=== PATIENT | female | born 2000 | race Caucasian/White ===

== ENCOUNTER 2020-11-19 07:28 | Inpatient (IN) | payer OTHER ==
[~2020-11-19] VITALS: Ht 165.1 cm; Wt 90.7 kg
[2020-11-19] MEDS ORDERED: METHYLERGONOVINE 0.2 MG/ML AMP IM ONE (07:55)
[2020-11-19] MEDS ORDERED: OXYTOCIN 20 UNITS in LACTATED RINGERS 1,000 ML IV SCH (07:55)
[2020-11-19] MEDS ORDERED: MISOPROSTOL 25 MCG TAB VG SCH (08:00)
--- NOTE | 2020-11-19 08:35 | NUR ---
PATIENT HAS BEEN SCREENED AND CATEGORIZED LOW NUTRITION RISK. PATIENT WILL BE SEEN WITHIN 7 DAYS OF ADMISSION. 11/25/[address]
[2020-11-19 09:08] LABS: APPEARANCE,URINE HAZY (CLEAR); BILIRUBIN,URINE NEGATIVE (NEGATIVE); BLOOD, URINE 2+ (NEGATIVE); COLOR,URINE YELLOW (YELLOW); LEUKOCYTE ESTERASE ,URINE TRACE (NEGATIVE); UGLUCOSE NEGATIVE (NEGATIVE)
[2020-11-19 09:10] LABS: ALBUMIN 2.7 g/dL (3.4-5.0); ANION GAP 14.9 (8-16); CARBON DIOXIDE 23.8 mmol/L (21-32); CREATININE 0.5 mg/dL (0.6-1.3); POTASSIUM 3.7 mmol/L (3.5-5.1); TOTAL BILIRUBIN 0.3 mg/dL (0.0-1.0)
[2020-11-19] MEDS ORDERED: AMPICILLIN 2,000 MG in NACL 0.9% 100 ML IV SCH (09:10)
[2020-11-19 09:17] VITALS: BP 107/58
[2020-11-19 09:21] LABS: NITRITE, URINE POSITIVE (NEGATIVE); WBC,URINE 0-5 /HPF (0-5)
[2020-11-19] MEDS: LACTATED RINGERS 1,000 ML IV SCH ×2 (10:33→17:49)
[2020-11-19 11:05] LABS: BASOPHILS % (AUTO) 0.5 % (0.0-2.0); EOSINOPHILS # (AUTO) 0.1 K/uL (0-0.4); EOSINOPHILS % (AUTO) 0.8 % (0.0-4.0); HEMATOCRIT 39.9 % (36-48); HEMOGLOBIN 13.2 g/dL (12.0-16.0); LYMPHOCYTES # (AUTO) 1.7 K/uL (2.5-16.5); LYMPHOCYTES % (AUTO) 18.5 % (20.5-51.1); MEAN CORPUSCULAR HEMOGLOBIN 31 pg (27-31); MEAN CORPUSCULAR HGB CONC 33 g/dL (33-37); MEAN CORPUSCULAR VOLUME 92.5 fL (80-94); MONOCYTES # (AUTO) 0.6 K/uL (0.8-1.0); MONOCYTES % (AUTO) 6.9 % (1.7-9.3); NEUTROPHILS # (AUTO) 6.7 K/uL (1.8-7.7); NEUTROPHILS % (AUTO) 73.3 % (42.2-75.2); PLATELET COUNT (AUTO) 177 K/uL (140-450); RED BLOOD CELL COUNT(AUTO) 4.32 MIL/uL (4.20-5.40); RED CELL DISTRIBUTION WIDTH 13.4 % (11.6-13.7); WHITE BLOOD COUNT (AUTO) 9.1 K/uL (4.8-10.8)
[2020-11-19] MEDS ORDERED: AMPICILLIN 2,000 MG VIAL ONE (11:10)
[2020-11-19 11:14] LABS: RAPID PLASMA REAGIN NON-REACTIVE (Non Reactiv)
[2020-11-19] MEDS ORDERED: AMPICILLIN 1,000 MG VIAL ONE ×3 (15:22→22:57)
[2020-11-19] MEDS: AMPICILLIN 1,000 MG in NACL 0.9% 50 ML IV SCH ×3 (15:29→23:24)
[2020-11-19] MEDS ORDERED: OXYTOCIN 20 UNITS/LR PREMIX 1,000 ML IV ONE (20:46)
[2020-11-20] MEDS: LACTATED RINGERS 1,000 ML IV SCH ×3 (02:23→09:57)
[2020-11-20] MEDS: AMPICILLIN 1,000 MG in NACL 0.9% 50 ML IV SCH ×3 (03:30→15:55)
[2020-11-20] MEDS ORDERED: AMPICILLIN 1,000 MG VIAL ONE ×4 (04:03→15:31)
[2020-11-20] MEDS ORDERED: AMPICILLIN 2,000 MG VIAL ONE (07:33)
[2020-11-20 08:31] VITALS: BP 119/66
[2020-11-20] MEDS ORDERED: LIDOCAINE MPF 1% 10 MG/ML VIAL ONE (09:24)
[2020-11-20] MEDS ORDERED: fentaNYL citrate 0.05 MG/ML VIAL ONE ×2 (09:24)
[2020-11-20] MEDS ORDERED: ROPIVACAINE 0.2%/NS PREMIX 200 ML EPI ONE (09:25)
[2020-11-20] MEDS ORDERED: OXYTOCIN 20 UNITS/LR PREMIX 1,000 ML IV ONE (15:43)
[2020-11-20] MEDS ORDERED: BENZOCAINE/MENTHOL 20%-0.5% 60 GM CAN TP PRN (17:00)
[2020-11-20] MEDS ORDERED: TEMAZEPAM 15 MG CAP PO PRN (17:00)
[2020-11-20] MEDS ORDERED: oxyCODONE/APAP 5/325 MG 1 TAB TAB PO PRN (17:00)
[2020-11-20] MEDS ORDERED: METHYLERGONOVINE 0.2 MG TAB PO PRN (17:00)
[2020-11-20] MEDS ORDERED: METHYLERGONOVINE 0.2 MG/ML AMP IM PRN (17:00)
[2020-11-20] MEDS ORDERED: OXYTOCIN 10 UNITS/ML VIAL IM PRN (17:00)
[2020-11-20] MEDS ORDERED: METHYLERGONOVINE 0.2 MG/ML AMP ONE (17:05)
[2020-11-20] MEDS ORDERED: DOCUSATE SOD/SENNA 50/8.6 MG 1 TAB PO SCH (21:00)
[2020-11-20] MEDS: IBUPROFEN 800 MG TAB PO PRN (21:35)
[2020-11-21] MEDS: IBUPROFEN 800 MG TAB PO PRN (04:38)
[2020-11-21 06:17] LABS: HEMATOCRIT 34.8 % (36-48); HEMOGLOBIN 11.5 g/dL (12.0-16.0)
[2020-11-21] MEDS: oxyCODONE/APAP 5/325 MG 1 TAB TAB PO PRN ×3 (08:10→22:01)
[2020-11-21] MEDS ORDERED: FLU VACCINE QS2020-21 0.5 ML SYR IMVAC PRN (22:10)
[2020-11-22] MEDS: oxyCODONE/APAP 5/325 MG 1 TAB TAB PO PRN (03:07)
== END 2020-11-22 10:15 | disposition home or self-care (01) | DRG 560 ==
LOC: MFCC 07:28
PROVIDERS: ADMIT Obstetrics & Gynecology; ATTEND Obstetrics & Gynecology
PROC: 10D07Z6 Extraction of Products of Conception, Vacuum, Via Natural or Artificial Opening (ICD-10-PCS; principal; 2020-11-20)
DX: O48.0 Post-term pregnancy (principal); O69.1XX0 Labor and delivery complicated by cord around neck, with compression, not applicable or unspecified; Z37.0 Single live birth; Z3A.40 40 weeks gestation of pregnancy; O99.824 Streptococcus B carrier state complicating childbirth; O66.5 Attempted application of vacuum extractor and forceps; Z20.822 Contact with and (suspected) exposure to COVID-19
CPT/HCPCS: 36415; 51702; 80053; 81001; 85018; 85025; 86592; 86886; 86900; 86901; 96361; 96365; 96366; 96372; J0290; J2001; J2210; J2590; J2795; J3010; J7120